=== PATIENT | female | born 1985 | race Caucasian/White ===

== ENCOUNTER 2018-04-13 05:31 | Inpatient (IN) | payer OTHER ==
[2018-04-13] VITALS (11 sets, daily range): BP systolic 110–117; BP diastolic 64–73; PULSE 67–78; TEMP 36.6–37; O2SAT 96–100; Ht 152.4 cm; Wt 71.0 kg
[~2018-04-13] VITALS: Ht 152.4 cm; Wt 71.0 kg
[~2018-04-13 05:31] MED LIST: ACET-1693 PO; ALBINS/ INH; ALBUAER INH; CALC500C3 PO; PEDICHW50 PO
[2018-04-13] MEDS ORDERED: CEFOXITIN IV 2,000 MG in DEXTROSE 5% 50ML 50 ML IV SCH (06:00)
[2018-04-13] MEDS ORDERED: LACTATED RINGER'S 1000ML 1,000 ML IV SCH (09:02)
[2018-04-13] MEDS ORDERED: ONDANSETRON INJ 2 MG/ML 2 ML VIAL ONE (09:04)
[2018-04-13] MEDS ORDERED: MoRPHine SULFATE PF 1 MG/ML 10 ML AMP/VIAL ONE (09:04)
[2018-04-13] MEDS ORDERED: FENTANYL CITRATE INJ 50 MCG/1 ML 2 ML VIAL ONE (09:04)
[2018-04-13] MEDS ORDERED: OXYTOCIN INJ 10 UNITS/ML VIAL ONE (09:04)
[2018-04-13] MEDS ORDERED: CITRIC ACID/SODIUM CITRATE 15 ML UDC PO ONE (09:15)
[2018-04-13] MEDS ORDERED: ATROPINE SULFATE 0.1 MG/ML 5ML SYR IV PRN (09:15)
[2018-04-13] MEDS ORDERED: EpHEDrine SULFATE INJ 50 MG/ML AMP IV PRN ×2 (09:15→11:45)
[2018-04-13] MEDS ORDERED: ONDANSETRON INJ 2 MG/ML 2 ML VIAL IV PRN ×2 (09:15→11:45)
[2018-04-13] MEDS ORDERED: FENTANYL CITRATE INJ 50 MCG/1 ML 2 ML VIAL IV PRN (09:15)
--- NOTE | 2018-04-13 09:33 | HISTORY & PHYSICAL EXAMINATION ---
DATE OF ADMISSION: 04/13/2018 HISTORY AND PHYSICAL CHIEF COMPLAINT: Intrauterine , 39 weeks 2 days, contractions, desire for permanent sterilization. HISTORY OF PRESENT ILLNESS: Patient is a 32-year-old 5, para 3. She has had one spontaneous AB. Her present has been well dated. Her due date is 04/18/2018. She states she has had irregular contractions for several days; however, at 8:00 p.m. the day prior to admission they became regular. She rates her pain as a 10/10. She was admitted, she was a fingertip. I checked her several hours later and she was 3+ cm, presently scheduled for repeat section with bilateral tubal ligation due to active labor. OBSTETRICAL HISTORY: As follows: 2006, she had a girl, 8 pounds 1 ounce, 42-week induction. She arrested at 5 cm. Induction lasted 16 hours. 2012, she had a boy, 7 pounds 14 ounces, 39 weeks, repeat . 2013, she had another boy, 7 pounds 8 ounces, 39 weeks, repeat . She requests permanent sterilization. She has been made aware of the procedure of tubal ligation including the fact that this procedure is intended to result in permanent and irreversible sterility and that occasionally C-sections fail and the patient may get despite having had her tubes tied. PAST MEDICAL HISTORY: Three children in good health. ALLERGIES: No known drug allergies. PAST SURGICAL HISTORY: Three C-sections, appendectomy. She has had her tubes tied in the past. MEDICAL HISTORY: No history of rheumatic fever, heart disease, heart murmur, diabetes, tuberculosis. SOCIAL HISTORY: Smokes half a pack a day, has done so for 20 years. No alcohol intake. Works at home. FAMILY HISTORY: Mom is 48 in good health, father 51 in good health, 3 brothers in good health. REVIEW OF SYSTEMS: HEAD: No symptoms of frequent or severe headaches. EYES: No symptoms of blurred vision, double vision. EARS: No symptoms of frequent ear infections, difficulty hearing. NOSE: No symptoms of nosebleeds, difficulty breathing through her nose. PHYSICAL EXAMINATION: GENERAL: Well-developed, well-nourished 32-year-old white female, alert, oriented x3 and cooperative, in no acute distress, appeared her stated age. EYES: Conjunctivae are pink. Sclerae are white, no evidence of jaundice. EARS: Had normal light reflex bilaterally. NOSE: Had normal mucosa. Septum is midline. There were no polyps. THROAT: No erythema or evidence of infection. Teeth are in good state of repair. HEAD: normocephalic, normal distribution of hair. NECK: Supple. Trachea midline. Thyroid is not enlarged. There is no adenopathy appreciated. Both carotids are of good intensity. ABDOMEN: Consistent with a term sized fetus, well-healed Pfannenstiel scar. Contractions were palpable. PELVIC: Vertex presentation, -2 station 3-4 cm. Cervix soft and about 80% effaced. MUSCULOSKELETAL: Revealed no calf tenderness. IMPRESSIONS OF THIS CASE: Status post 3 previous C-sections, status post appendectomy, status post tubal ligation, active labor, desire for permanent sterilization.
[2018-04-13 09:36] LABS: BASO % 0.2 %; BASO ABS # 0.02 K/uL (0-0.2); EOS % 0.7 %; EOS ABS # 0.08 K/uL (0-0.5); HEMATOCRIT 39.4 % (37-47); HEMOGLOBIN 13.7 g/dL (12.0-16.0); IG# 0.04 K/uL (0.00-0.02); LYMPH % 17.9 %; LYMPH ABS # 2.01 K/uL (1.2-3.4); MEAN CELL VOLUME 93.4 fL (80-100); MEAN CORPUSCULAR HEMOGLOBIN 32.5 pg (25-34); MEAN CORPUSCULAR HGB CONC 34.8 g/dl (32-36); MEAN PLATELET VOLUME 11.3 fL (7.4-10.4); MONO % 6.2 %; MONO ABS # 0.69 K/uL (0.11-0.59); NEUT % 74.6 %; NEUT ABS # 8.36 K/uL (1.4-6.5); PLATELET COUNT 173 K/uL (130-400); RED CELL DISTRIBUTION WIDTH CV 13.1 % (11.5-14.5); RED CELL DISTRIBUTION WIDTH SD 44.5 fL (36.4-46.3)
[2018-04-13] MEDS ORDERED: OXYTOCIN INJ 10 UNITS/ML VIAL IM ONE (10:19)
--- NOTE | 2018-04-13 11:19 | [facility] Post Operative Brief Note ---
Immediate Operative Summary Operative Date Apr 13, 2018. Pre-Operative Diagnosis 1. Labor Post-Operative Diagnosis Same Procedure(s) Performed 1. Lower Uterine Transverse Repeat Caesarean Section for the of a viable female infant at 1012 2. Bilateral Tubal Ligation Surgeon Dr. Mata Piano Instructor Surgeon(s) Rosaura Boudreaux RN Estimated Blood Loss 700cc Findings Consistent with Post-Op Diagnosis Fluids (cc crystalloids) 1700 ml Specimens 1. Placenta: Examine 2. Cord blood obtained 3. Right and Left Portions of Fallopian Tubes Drains None Anesthesia Type Spinal Complication(s) none Disposition Accompanied Pt To Recover: no Disposition: Recovery Room / PACU Overlapping Procedure I was immediately available: during the entire case
[2018-04-13] MEDS ORDERED: BENZOCAINE 20% AER SPR 82.5 GM CAN EXT PRN (11:30)
[2018-04-13] MEDS ORDERED: LANOLIN OINT EXT PRN (11:30)
[2018-04-13] MEDS ORDERED: SUPERCREAM 0.870 % 15GM JAR EXT PRN (11:30)
[2018-04-13] MEDS ORDERED: MAGNESIUM HYDROXIDE SUSP 30 ML UDC PO PRN (11:30)
[2018-04-13] MEDS ORDERED: DIPHTHERIA/TETANUS/PERTUSSIS 0.5 ML SYR/VIAL IM. ONE (11:30)
[2018-04-13] MEDS ORDERED: SENNA 8.6 MG TAB PO PRN (11:30)
[2018-04-13] MEDS ORDERED: HYDROCORTISONE ACETATE 25 MG SUPP PR PRN (11:30)
[2018-04-13] MEDS ORDERED: SODIUM CHLORIDE 0.9% 1000ML 1,000 ML IV PRN (11:34)
[2018-04-13] MEDS ORDERED: LACTATED RINGER'S 1000ML 500 ML IV PRN (11:34)
[2018-04-13] MEDS ORDERED: NALOXONE HCL INJ 0.08 MG in SYRINGE 1.8 ML IV PRN (11:34)
[2018-04-13] MEDS ORDERED: NALOXONE HCL INJ 1 MG in SODIUM CHLORIDE 0.9% 1000ML 1,000 ML IV PRN (11:34)
[2018-04-13] MEDS ORDERED: MoRPHine SULFATE PF 1 MG/ML 10 ML AMP/VIAL EPI PRN (11:45)
[2018-04-13] MEDS ORDERED: NALOXONE HCL 0.4 MG/1 ML VIAL/CARP IV PRN (11:45)
[2018-04-13] MEDS ORDERED: DiphenhydrAMINE HCL 50 MG/ML VIAL IV PRN (11:45)
[2018-04-13] MEDS ORDERED: MEPERIDINE HCL 25 MG/ML CARP IV PRN (11:45)
[2018-04-13] MEDS ORDERED: DC INTRASPINAL MORPHINE SCH (11:45)
[2018-04-13] MEDS ORDERED: NALBUPHINE HCL INJ 10 MG/ML 1ML AMP IV PRN (11:45)
[2018-04-13] MEDS ORDERED: NO NARCOTICS OR SEDATIVES SCH (11:45)
[2018-04-13] MEDS: OXYTOCIN INJ 20 UNITS in LACTATED RINGER'S 1000ML 1,000 ML IV SCH ×2 (12:02→20:11)
--- NOTE | 2018-04-13 12:08 | Anesthesiology Progress Note ---
Anesthesia Post Op Note Date & Time Apr 13, 2018 at 12:08 Notes Mental Status: alert / awake / arousable, participated in evaluation Pt Amnestic to Procedure: Yes Nausea / Vomiting: adequately controlled Pain: adequately controlled Airway Patency, RR, SpO2: stable & adequate BP & HR: stable & adequate Hydration State: stable & adequate Neuraxial Anesthesia: was administered, sensory block is resolving Anesthetic Complications: no major complications apparent
--- NOTE | 2018-04-13 12:18 | OPERATIVE REPORT ---
DATE OF OPERATION: 04/13/2018 PROCEDURE: Repeat low segment section. INDICATIONS FOR SURGERY: Three previous sections, desire for permanent sterilization. POSTOPERATIVE DIAGNOSIS: Three previous sections, desire for permanent sterilization. PATHOLOGY: Pending. SURGEON: Rosi Mata MD DESKTOP ARCHITECT: assistant food service manager. ESTIMATED BLOOD LOSS: 700 mL. ANESTHESIA: Spinal. OPERATIVE FINDINGS AND PROCEDURE: Patient brought to the OR table, correctly identified by armband and conversation. Spinal anesthesia was administered. Lower abdomen and upper thigh was painted with an alcohol based sterilizing solution. 3 minutes were waited for the solution to dry then it was draped in usual sterile fashion. The anesthesia level was checked and found to be adequate and then a Pfannenstiel incision was made through a previous scar. Incision was carried down to the anterior fascia by sharp dissection. Hemostasis was secured by electrocauterization. Fascia was incised transversely, from underlying muscle by blunt and sharp dissection. Recti muscles were in the midline exposing the peritoneum which was carefully raised and entered. A bladder blade was used to retract the bladder out of the operative field. An incision was made above the vesicouterine fold. Bladder was undermined bluntly and pushed out of the operative field. Lower uterine segment was then scored with a knife and then entered with scissors. Meconium stained amniotic fluid could be seen at this time. Vectis retractor was applied to the head. Fundal pressure live infant was delivered. The was attended to by the kick plate installer who was scrubbed and present at the time of delivery. was suctioned through the mouth and the nose before the body was delivered. Cord was clamped and cut. Cord blood was taken. Then the placenta was removed manually. The uterus, tubes, and ovaries were brought out through the incision. The myometrium was injected with 10 units of Pitocin, uterine cavity was cleansed with a clean, dry sponge and then we grabbed the angles with the ring forceps and approximated the myometrial level with a heavy duty chromic gut suture. I then did a second approximation of Vicryl over this layer, approximated the fascial layer on the uterus and then I did about 4 interrupted [id number] sutures along the incisional line to complete the approximation and to secure hemostasis. Hemostasis was excellent. Peritoneal edges were restored with a running 3-0 chromic. Pelvis was then washed, cleansed of all blood and debris. Tubes were inspected. There was a big piece of each tube was missing and the ends were . I started with the left tube. I dissected the distal portion of the tube out between the 2 leaves of the broad ligament, resected a portion of it and then exteriorized the distal portion of the tube. I then resected the proximal portion of the tube, cauterized the tubal opening and buried it into the broad ligament and then the broad ligament between the 2 pieces of tube was approximated front to back with about 5 interrupted sutures of plain. I did the same procedure on the left side. Over on the left side, I removed a proximal and distal piece of the tube, dissected out the proximal piece of the tube between the 2 leaves of the broad ligament, we removed a portion of it, cauterized the opening and then buried it between the 2 leaves of the broad ligament. The distal portion, I brought that out, dissected it out between the 2 leaves of the broad ligament, cut a portion of it out and then exteriorized it, we then put about 5 interrupted plain sutures approximating the broad ligament front to back between the 2 pieces of the tube. Ovaries were inspected and found to be normal. Hemostasis was excellent. Uterus, tubes, and ovaries were reinserted into the abdominal cavity. Careful anatomical approximation of the anterior abdominal wall was performed. Peritoneum was closed with a mattress suture of chromic catgut. Recti muscles were approximated with interrupted [id number] suture of chromic catgut. The fascia was closed with continuous interlocking suture of Vicryl on each side, tied in the midline. SubQ was approximated with a continuous plain and skin edges were approximated with staple clips. The patient tolerated the procedure well and left the OR in good condition. I attest to the content of the Intraoperative Record and any orders documented therein. Any exception s are noted below.
[2018-04-13] MEDS: KETOROLAC TROMETHAMINE 30 MG/ML VIAL IV. PRN ×2 (14:38→23:19)
[2018-04-13] MEDS: SIMETHICONE 80 MG CHEW PO SCH (20:11)
[2018-04-13] MEDS: DOCUSATE SODIUM 100 MG CAP PO SCH (20:11)
[2018-04-14] VITALS (8 sets, daily range): BP systolic 104–116; BP diastolic 69–81; PULSE 71–86; TEMP 36.7–36.9; O2SAT 95–97
[2018-04-14] MEDS ORDERED: OXYCODONE/ACETAMINOPHEN 5-325 TAB PO PRN (04:00)
[2018-04-14] MEDS ORDERED: ONDANSETRON INJ 2 MG/ML 2 ML VIAL IV PRN (04:00)
[2018-04-14] MEDS ORDERED: ZOLPIDEM TARTRATE 5 MG TAB PO PRN (04:00)
[2018-04-14] MEDS ORDERED: DiphenhydrAMINE HCL 50 MG/ML VIAL IV PRN (04:00)
[2018-04-14] MEDS ORDERED: MEPERIDINE HCL 50 MG/ML CARP IV PRN ×2 (04:00)
[2018-04-14] MEDS ORDERED: KETOROLAC TROMETHAMINE 30 MG/ML VIAL IV. PRN (04:00)
[2018-04-14 06:36] LABS: BASO % 0.2 %; BASO ABS # 0.02 K/uL (0-0.2); EOS % 1.1 %; EOS ABS # 0.11 K/uL (0-0.5); HEMATOCRIT 36.8 % (37-47); HEMOGLOBIN 12.4 g/dL (12.0-16.0); IG# 0.03 K/uL (0.00-0.02); LYMPH % 15.2 %; LYMPH ABS # 1.49 K/uL (1.2-3.4); MEAN CELL VOLUME 93.6 fL (80-100); MEAN CORPUSCULAR HEMOGLOBIN 31.6 pg (25-34); MEAN CORPUSCULAR HGB CONC 33.7 g/dl (32-36); MEAN PLATELET VOLUME 10.8 fL (7.4-10.4); MONO % 9.2 %; NEUT ABS # 7.24 K/uL (1.4-6.5); PLATELET COUNT 130 K/uL (130-400); RED CELL DISTRIBUTION WIDTH CV 12.9 % (11.5-14.5); RED CELL DISTRIBUTION WIDTH SD 44.5 fL (36.4-46.3); WHITE BLOOD COUNT 9.79 K/uL (4.8-10.8)
[2018-04-14] MEDS: FERROUS SULFATE 325 MG TAB PO SCH (07:53)
[2018-04-14] MEDS: SIMETHICONE 80 MG CHEW PO SCH ×4 (07:53→19:45)
[2018-04-14] MEDS: DOCUSATE SODIUM 100 MG CAP PO SCH ×2 (07:53→19:45)
[2018-04-14] MEDS: PRENATAL VITAMIN TAB PO SCH (07:53)
--- NOTE | 2018-04-14 08:33 | OB/GYN Progress Note ---
ENVIRONMENTAL MONITORING TECHNICIAN Progress Note Date of Service: Apr 14, 2018. Patient is seen and examined. She feels well, no complaints. Pain is under control with oral meds. Ambulating without dizziness. Voiding without difficulty Tolerating regular diet with out N&V Flatus + BM NEG Bleeding is minimal No fever/ chills/ CP/ SOB/ N&V/ Leg pain Bottle feeding without problems Date Time Temp Pulse Resp B/P (MAP) Pulse Ox O2 Delivery O2 Flow Rate FiO2 04/14/18 07:40 Room Air 04/14/18 07:40 36.7 71 16 107/81 (90) Room Air 04/14/18 04:15 18 95 04/14/18 04:15 36.9 75 18 104/69 (81) 95 Room Air 04/14/18 03:33 16 97 04/14/18 02:15 18 96 04/14/18 01:15 16 97 04/14/18 00:20 16 96 04/13/18 23:15 18 96 04/13/18 23:15 37.0 72 18 115/68 (84) 96 Room Air 04/13/18 23:15 96 Room Air 04/13/18 22:15 18 96 04/13/18 21:23 16 98 04/13/18 20:40 18 97 04/13/18 19:35 18 97 04/13/18 19:35 36.9 78 18 112/64 (80) 97 Room Air 04/13/18 18:30 20 100 04/13/18 17:32 16 98 04/13/18 16:40 16 98 04/13/18 15:45 67 22 110/69 (83) 99 04/13/18 15:45 22 99 04/13/18 15:06 99 Room Air 04/13/18 14:45 20 99 04/13/18 14:45 36.6 69 20 117/73 (88) 99 04/13/18 14:45 99 Room Air Last 24 Hours Test 04/13/18 09:20 04/14/18 06:22 White Blood Count 11.20 K/uL 9.79 K/uL Red Blood Count 4.22 M/uL 3.93 M/uL Hemoglobin 13.7 g/dL 12.4 g/dL Hematocrit 39.4 % 36.8 % Mean Corpuscular Volume 93.4 fL 93.6 fL Mean Corpuscular Hemoglobin 32.5 pg 31.6 pg Mean Corpuscular Hemoglobin Concent 34.8 g/dl 33.7 g/dl Platelet Count 173 K/uL 130 K/uL Mean Platelet Volume 11.3 fL 10.8 fL Neutrophils (%) (Auto) 74.6 % 74.0 % Lymphocytes (%) (Auto) 17.9 % 15.2 % Monocytes (%) (Auto) 6.2 % 9.2 % Eosinophils (%) (Auto) 0.7 % 1.1 % Basophils (%) (Auto) 0.2 % 0.2 % Neutrophils # (Auto) 8.36 K/uL 7.24 K/uL Lymphocytes # (Auto) 2.01 K/uL 1.49 K/uL Monocytes # (Auto) 0.69 K/uL 0.90 K/uL Eosinophils # (Auto) 0.08 K/uL 0.11 K/uL Basophils # (Auto) 0.02 K/uL 0.02 K/uL RDW Standard Deviation 44.5 fL 44.5 fL RDW Coefficient of Variation 13.1 % 12.9 % Immature Granulocyte % (Auto) 0.4 % 0.3 % Immature Granulocyte # (Auto) 0.04 K/uL 0.03 K/uL PE: General: Alert, orientedx3, NAD CVS: S1S2 RRR Lungs; CTAB Abd: soft, NT, ND, BS+, fundus firm, below Umbilicus Dressing: Clean, dry, intact Perineum intact, Lochia rubra minimal Ext; NT, no edema AP: 32 yo s/p RC Section+ BTL, pod# 1 VSS Afebrile doing well Continue routine postop care Encourage ambulation, PO intake All questions were answered
[2018-04-14] MEDS: OXYCODONE/ACETAMINOPHEN 5-325 TAB PO PRN ×3 (10:43→23:48)
[2018-04-14] MEDS: IBUPROFEN 600 MG TAB PO PRN ×3 (10:43→23:46)
[2018-04-14] MEDS ORDERED: BISACODYL 5 MG TABEC PO ONE (22:00)
[2018-04-15 08:00] VITALS: BP_SYST 101; BP_DIAS 68; BP_DIAS 71; PULSE 77; PULSE 82; TEMP 36.5; O2SAT 97
[2018-04-15] MEDS: IBUPROFEN 600 MG TAB PO PRN (08:00)
[2018-04-15] MEDS: DOCUSATE SODIUM 100 MG CAP PO SCH (08:00)
[2018-04-15] MEDS: OXYCODONE/ACETAMINOPHEN 5-325 TAB PO PRN (08:00)
[2018-04-15] MEDS: PRENATAL VITAMIN TAB PO SCH (08:01)
[2018-04-15] MEDS: SIMETHICONE 80 MG CHEW PO SCH ×2 (08:01→11:49)
[2018-04-15] MEDS: FERROUS SULFATE 325 MG TAB PO SCH (08:01)
[2018-04-15] MEDS ORDERED: BISACODYL 10 MG SUPP PR PRN (11:30)
--- NOTE | 2018-04-15 12:41 | Progress Note ---
Subjective Apr 15, 2018. Subjective conversation w/ patient Voiding: no voiding problems Passing Gas: Yes Diet Tolerance: Regular Diet Lochia: Small Pain: controlled Review of Systems Constitutional: No fever, No chills, No sweats, No weight loss, No weakness, No fatigue, No problem reported Respiratory: No cough, No sputum, No wheezing, No shortness of breath, No dyspnea on exertion, No dyspnea at rest, No hemoptysis, No problem reported Cardiac: No chest pain, No orthopnea, No PND, No edema, No claudication, No palpitations, No problem reported Breast: No see HPI, No breast lump, No change in shape, No nipple discharge, No breast pain, No problem reported Abdomen: No pain, No nausea, No vomiting, No diarrhea, No constipation, No GI bleeding, No problem reported Female : No see HPI, No dysuria, No urinary frequency, No hematuria, No incontinence, No abnormal vaginal bleeding, No vaginal discharge, No problem reported Objective Vital Signs Date Time Temp Pulse Resp B/P (MAP) Pulse Ox O2 Delivery O2 Flow Rate FiO2 04/15/18 08:00 Room Air 04/15/18 08:00 36.5 77 18 101/68 (79) 97 Room Air 04/14/18 23:50 36.7 81 18 116/73 (87) 96 Room Air 04/14/18 23:50 96 Room Air 04/14/18 15:30 36.9 86 16 112/72 (85) Room Air 04/14/18 15:30 Room Air Physical Exam General Appearance: WELL-APPEARING Fundus: Firm Incision Description: Clean, Dry & Intact Assessment and Plan Day#: 2 Continue Routine Care: Discharge home
[2018-04-15] MEDS ORDERED: OXYC-57 PO (12:49)
--- NOTE | 2018-04-15 12:52 | Discharge Instructions ---
Discharge Instructions Date of Service Apr 15, 2018. Admission Reason for Admission: Labor Check Discharge Discharge Diagnosis / Problem: Repeat section Discharge Goals Goal(s): Routine recovery after Activity Recommendations Activity Limitations: as noted below Lifting Limitations: no more than 10 pounds Exercise/Sports Limitations: as tolerated May Resume Sexual Activity: after follow-up appointment Shower/Bathe: keep incision dry Driving or Machine Use: Driving only when no longer taking narcotics . Instructions / Follow-Up Instructions / Follow-Up Routine section care Current Hospital Diet Patient's current hospital diet: Regular OB Diet Discharge Diet Recommended Diet: Regular Diet Procedures Procedures Performed: 1. Lower Uterine Transverse Repeat Caesarean Section for the of a viable female at 1012 2. Bilateral Tubal Ligation Pending Studies Studies pending at discharge: no Laboratory Results none Medical Emergencies . Who to Call and When: Medical Emergencies: If at any time you feel your situation is an emergency, please call 911 immediately. . Non-Emergent Contact Non-Emergency issues call your: Primary Care Provider, Bench Assembly Inspector Call Non-Emergent contact if: you have a fever, your pain is not controlled, your pain is worsening . Past History Medical & Surgical History: (1) prior section (2) Active labor at term . "Provider Documentation" section prepared by Ambar Pennington. .
--- NOTE | 2018-04-15 12:54 | Discharge Summary ---
Discharge Summary Date of Service Apr 15, 2018. Discharge Summary Admission Date: Apr 13, 2018 at 09:05 Discharge Date: Apr 15, 2018 Discharge Disposition: Home Principal Diagnosis: Term Prior section Medication Reconciliation New Medications: Oxycodone/Acetaminophen 5MG/325MG (Percocet 5MG/325MG) Tab 1 TAB PO Q4H PRN for Pain - Pain Scale 1-5 for 10 Days, #20 TAB PAIN Continued Medications: Pediatric Multiple Vitamin W/ (Flintstones Chewable) 1 Chw Chw 1 TAB PO QAM Hospital Course Pt had a repeat section. She had a normal post operative course and was discharged home on POD #2. Total time spent on discharge = This includes examination of the patient, discharge planning, medication reconciliation, and communication with other providers. Discharge Instructions Please see discharge instruction sheet
[2018-04-15 13:36] VITALS: BP_DIAS 68; PULSE 77; TEMP 36.5
== END 2018-04-15 14:00 | disposition home or self-care (01) | DRG 766 ==
LOC: C.LD 05:31 → C.OPB 05:31 → C.LD 09:05 → C.OPB 09:05 → C.OBG 14:21
PROVIDERS: ADMIT Obstetrics & Gynecology; ATTEND Obstetrics & Gynecology
PROC: 0UB70ZZ Excision of Bilateral Fallopian Tubes, Open Approach (ICD-10-PCS; principal; 2018-04-13 09:15)
PROC: 10D00Z1 Extraction of Products of Conception, Low, Open Approach (ICD-10-PCS; principal; 2018-04-13 09:15)
DX: O34.211 Maternal care for low transverse scar from previous cesarean delivery (principal); O99.334 Smoking (tobacco) complicating childbirth; O09.293 Supervision of pregnancy with other poor reproductive or obstetric history, third trimester; Z37.0 Single live birth; Z3A.39 39 weeks gestation of pregnancy; Z30.2 Encounter for sterilization